=== PATIENT | female | born 1950 | race Caucasian/White ===

== ENCOUNTER 2023-01-21 23:15 | Emergency (ER) | payer MEDICARE, OTHER, SELFPAY ==
[2023-01-21 23:32] VITALS: BP 143/58; PULSE 88; RESP 16; TEMP 36.7; O2SAT 97; BMI 24.0
--- NOTE | 2023-01-21 23:32 | XR_ITS ---
PROCEDURE INFORMATION: Exam: XR Right Knee Exam date and time: 01/21/2023 11:37 PM Age: 72 years old Clinical indication: Pain; Knee; Right; Additional info: Traumatic pain TECHNIQUE: Imaging protocol: Radiologic exam of the right knee. Views: 1 or 2 views. COMPARISON: CR XR FEMUR RT 2V 01/21/2023 11:36 PM FINDINGS: Bones/joints: Intramedullary distal femur demarcus. Two screws in the medial femoral condyle. Tricompartmental joint space narrowing and osteophyte formation. Osteopenia. No focal bony erosive or destructive lesions. The no hardware complications. No acute fracture or dislocation. Osteopenia Soft tissues: Normal. IMPRESSION: No acute findings.
--- NOTE | 2023-01-21 23:32 | XR_ITS ---
PROCEDURE INFORMATION: Exam: XR Right Femur Exam date and time: 01/21/2023 11:36 PM Age: 72 years old Clinical indication: Pain; Thigh; Right; Additional info: Trauma TECHNIQUE: Imaging protocol: Radiologic exam of the right femur. Views: 2 views. COMPARISON: No relevant prior studies available. FINDINGS: Bones/joints: No acute fracture or dislocation. Intramedullary demarcus and dynamic compression screw fixation of proximal femur. Screws involving the patella. Soft tissues: Unremarkable. IMPRESSION: No acute findings.
--- NOTE | 2023-01-21 23:32 | XR_ITS ---
PROCEDURE INFORMATION: Exam: XR Right Tibia and Fibula Exam date and time: 01/21/2023 11:38 PM Age: 72 years old Clinical indication: Pain; Lower leg; Right; Additional info: Traumatic pain TECHNIQUE: Imaging protocol: Radiologic exam of the right tibia and fibula. Views: 2 views. COMPARISON: CR Knee R 01/21/2023 11:37 PM FINDINGS: Bones/joints: Postsurgical changes in the distal femur as described on knee x-ray done the same day. Tibia and fibula show no acute fracture or dislocation. Osteopenia Soft tissues: Normal. IMPRESSION: No acute findings.
--- NOTE | 2023-01-21 23:34 | [facility].EDGENADL ---
Discharge Plan Disposition Chief Complaint: PAIN Referrals Follow up/Referrals: Provider,Ayush, [Primary Care Provider] - See instructions Activity Restrictions/Add. Instructions Additional Instructions/Restrictions: At this time it was felt you are safe to be discharged home. If new or worsening symptoms please do not hesitate to return to the emergency department. Please take Tylenol and ibuprofen as needed for pain every 6 hours. Please follow-up with your orthopedic doctor once you return home. Clinical Impressions Clinical Impression: Acute knee pain Discharge ED Provider: Fredrick Pugh General Adult HPI General Chief complaint: PAIN Stated complaint: AO 01/21/23 1100 injury Right knee Time Seen by Provider: 01/21/23 23:34 History of Present Illness HPI narrative: Patient is a 72-year-old male with past medical history of right knee surgery who presents emergency department for evaluation of traumatic knee pain. Patient fell on her right knee while tripping in the bathroom prior to arrival. Patient denies hitting her head, passing out, other traumatic injuries. Patient had immediate severe pain at the right knee with limited range of motion. No other acute complaints at this time. Related Data Allergies Allergy/AdvReac Type Severity Reaction Status Date / Time codeine Allergy Verified 01/21/23 23:36 [facility] Disclaimer: The information contained in this section may have been updated after the patient was seen, as this information can be updated by other users. Medical History (Updated 01/22/23 @ 00:41 by Fredrick Pugh MD) Diabetes mellitus type 1 Osteoporosis Social History (Updated 01/22/23 @ 00:41 by Fredrick Pugh MD) Smoking Status: Never smoker alcohol intake: never current occupational status: previously employed Travel in the last 8 weeks: Inside the [place] ROS Obtained: Yes Systems reviewed as appropriate & no additional complaints except as documented Physical Exam General General appearance: alert and in no apparent distress Head Head exam: atraumatic and normocephalic Eye Eye exam: Present PERRL and EOMI ENT ENT exam: Present mucous membranes moist Neck Neck exam: Present normal inspection Chest Chest inspection: Present normal inspection and symmetric chest wall rise Respiratory Respiratory exam: Present normal lung sounds bilaterally; Absent respiratory distress Cardiovascular Cardiovascular exam: Present regular rate and normal rhythm Abdominal Exam Abdominal exam: Present soft; Absent tenderness Extremities Exam Extremities exam: Present tenderness (Tenderness and swelling over the right knee, extensor mechanism appears to be intact however exam is significantly confounded by pain. Palpable dorsal pedal pulse distally. Tenderness over the distal femur) and joint swelling Neurological Exam Neurological exam: Present alert and oriented X3 Psychiatric Psychiatric exam: Present normal affect Skin Skin exam: Present warm and dry Medical Decision Making Tyshawn Inquiry Pt receiving controlled substance: No Vital Signs: 01/21/23 23:32 Temperature 98.1 F Temperature Source Oral Pulse Rate [Left] 88 Respiratory Rate 16 Blood Pressure [Right Arm] 143/58 H Blood Pressure Mean [Right Arm] 86 02 Sat by Pulse Oximetry 97 Orders (Tests/Meds): ED MEDICATIONS Discontinued Medications Generic Name Dose Route Start Last Admin Trade Name Freq PRN Reason Stop Dose Admin Acetaminophen 500 mg 01/22/23 00:21 01/22/23 00:24 Acetaminophen 500mg Tab PO 01/22/23 00:22 500 mg ONCE ONE Administration Morphine Sulfate 4 mg 01/21/23 23:32 01/22/23 00:18 Morphine 4mg/Ml Syringe IV 01/21/23 23:33 4 mg ONCE ONE Administration ORDERS Category Date Time Status Femur XR right 2 views [XR femur RT 2V] Stat Exams 01/21/23 23:32 Completed Fibula/tibia XR right 2 views [XR tibia fibula RT 2V] Exams 01/21/23 2
[2023-01-22] VITALS: BP 139/97; PULSE 84; RESP 16; O2SAT 97
[2023-01-22 00:30] VITALS: BP 129/60; PULSE 80; RESP 18; O2SAT 97
--- NOTE | 2023-01-22 00:51 | PC.NURSE ---
Carlito wrap placed on the pts Right knee per MD Pugh's request. CR
[2023-01-22 01:11] VITALS: BP 127/63; PULSE 74; RESP 16; TEMP 36.7
== END 2023-01-22 01:15 | disposition home or self-care (01) ==
PROVIDERS: Emergency Provider Emergency Medicine
DX: M25.561 Pain in right knee (principal); W18.30XA Fall on same level, unspecified, initial encounter
CPT/HCPCS: 73552; 73560; 73590; 96374; 99284; 99285